=== PATIENT | male | born 1995 | race Caucasian/White ===

== ENCOUNTER 2021-05-17 07:01 | Emergency (ER) | payer BC ==
[2021-05-17] MEDS ORDERED: Ondansetron 4 MG Tab.DIS PO ONE (07:30)
[2021-05-17] MEDS ORDERED: Ibuprofen 600 MG Tab PO ONE (07:30)
[2021-05-17] MEDS ORDERED: Acetaminophen 325 MG Tab PO ONE (07:30)
[2021-05-17 08:11] LABS: CORONAVIRUS COVID-19 NAA POSITIVE (NEGATIVE); INFLUENZA A NAA NEGATIVE (NEGATIVE); INFLUENZA B NAA NEGATIVE (NEGATIVE)
== END 2021-05-17 08:38 | disposition home or self-care (01) ==
LOC: MW.ED 07:01
DX: U07.1 COVID-19 (principal); E66.9 Obesity, unspecified; Z68.36 Body mass index [BMI] 36.0-36.9, adult
CPT/HCPCS: 0240U; 99284; A9270

== ENCOUNTER 2023-07-23 12:21 | Emergency (ER) | payer OTHER, BC ==
[2023-07-23] MEDS: Diphtheria,Pertussis(Acell),Tetanus Vaccine 0.5 ML Syringe IM ONE (12:49)
[2023-07-23 13:05] LABS: ALANINE AMINOTRANSFERASE,ALT 90 IU/L (14-63); ALBUMIN 3.8 g/dL (3.4-5.0); ALKALINE PHOSPHATASE 64 U/L (46-116); ASPARTATE AMNIOTRANSFERASE,AST 32 IU/L (15-37); BILIRUBIN TOTAL 0.4 mg/dL (0.2-1.0); BLOOD UREA NITROGEN,BUN 19 mg/dL (7.0-18.0); CALCIUM 9.2 mg/dL (8.5-10.1); CHLORIDE,CL 104 mmol/L (98-107); EST CRCL DRUG DOSING (CG) 98.36 mL/min; GLUCOSE RANDOM 114 mg/dL (74-106); POTASSIUM,K 3.8 mmol/L (3.5-5.1); PROTEIN TOTAL,TP 7.6 g/dL (6.4-8.2); SODIUM,NA 140 mmol/L (136-148)
[2023-07-23 13:06] LABS: ESTIMATED GFR 104 mL/min (>60)
[2023-07-23 14:31] LABS: HIV12 AG/AB 4TH GEN W/REFLEX 0.1 INDEX (<1.0)
== END 2023-07-23 13:18 | disposition home or self-care (01) ==
LOC: MW.ED 12:21
DX: Z77.21 Contact with and (suspected) exposure to potentially hazardous body fluids (principal); Z23 Encounter for immunization; Z79.899 Other long term (current) drug therapy
CPT/HCPCS: 36415; 80053; 86706; 86803; 87389; 90471; 90715; 99283; 99283-25